=== PATIENT | male | born 1970 | race Caucasian/White ===

== ENCOUNTER 2016-08-09 10:00 | Emergency (ER) | payer SELFPAY ==
[~2016-08-09] VITALS: Ht 177.8 cm; Wt 87.5 kg
[2016-08-09 10:30] LABS: BASOPHIL % 0.4 % (0-2); PLATELET COUNT 227 x10^3mcL (130-400); RED CELL DISTRIBUTION WIDTH 14.1 % (11.5-14.5)
[2016-08-09 10:42] LABS: CALCIUM 9.4 mg/dL (8.5-10.1); CARBON DIOXIDE 28.6 mmol/L (21-32); CHLORIDE SERUM 102 mmol/L (98-107); GFR1 > 60 mL/min; GLUCOSE SERUM 130 mg/dL (74-106); POTASSIUM SERUM 3.9 mmol/L (3.5-5.1); SODIUM SERUM 140 mmol/L (136-145)
[2016-08-09 10:47] LABS: ALBUMIN 4.2 g/dL (3.4-5.0); ALKALINE PHOSPHATASE 96 U/L (46-116); ALT/SGPT 50 U/L (16-63); AST/SGOT 35 U/L (15-37); LIPASE 197 IU/L (73-393)
[2016-08-09 10:58] LABS: FREE T4 0.86 ng/dL (0.76-1.46); FREE THYROXINE INDEX 2.8 ug/dL (1.4-4.5); T4(THYROXINE) 8.4 ug/dL (4.7-13.3)
[2016-08-09 11:07] LABS: CHOLESTEROL 309 mg/dL (<200); CHOLESTEROL/HDL RATIO 2.3; HDL CHOLESTEROL 134 mg/dL (40-60); TOTAL PROTEIN, SERUM 8.4 g/dL (6.4-8.2); TRIGLYCERIDES 327 mg/dL (<150)
[2016-08-09 11:24] LABS: T3 TOTAL 1.26 ng/mL
[2016-08-09 11:24] LABS: microscopic required? NO
[2016-08-09 11:32] LABS: urine erythrocyte NEGATIVE (NEGATIVE)
[2016-08-09 11:44] LABS: AMPHETAMINE QUAL UR NONE DETECTED (NEG <=1000)
[2016-08-09 14:50] VITALS: BP 142/101
== END 2016-08-09 14:50 | disposition home or self-care (01) ==
LOC: ED 10:00
PROVIDERS: Specialist
DX: F10.239 Alcohol dependence with withdrawal, unspecified (principal); E86.0 Dehydration; G47.00 Insomnia, unspecified; I10 Essential (primary) hypertension
CPT/HCPCS: 83880; 84439; J2060; J3490; J7030